=== PATIENT | female | born 1950 | race Caucasian/White ===

== ENCOUNTER 2016-06-26 03:52 | Emergency (ER) | payer OTHER ==
[~2016-06-26] VITALS: Ht 157.5 cm; Wt 84.0 kg
[~2016-06-26 03:52] MED LIST: [UNRECOGNIZED DRUG - REMARK] PO; [UNRECOGNIZED DRUG - REMARK] PO
[2016-06-26 03:57] VITALS: Ht 157.5 cm; Wt 84.0 kg
[2016-06-26] MEDS ORDERED: PIPER-TAZO 3.375 GM IV (PMX) 100 ML IVPB STA (07:26)
[2016-06-26] MEDS ORDERED: VANCOMYCIN 1 GM (PMX) 250 ML IVPB STA (07:26)
[2016-06-26] MEDS ORDERED: SODIUM CHLORIDE 0.9% 1L BAG IV* STA (07:26)
[2016-06-26] MEDS ORDERED: IBUPROFEN 800 MG TAB PO ONE (07:30)
--- NOTE | 2016-06-26 07:54 | ERA ---
ER Documentation Chief Complaint Date/Time DATE: 06/26/16 TIME: 07:52 Chief Complaint sp removal of R breast tumor 20 days ago, fever today w/ pain HPI 65-year-old female presents with family. The patient had a right breast tumor resection approximately 20 days ago. The patient presents with approximately 48 hours of symptoms that include right breast tenderness, drainage, erythema and warmth. Generalized fatigue. The patient surgery was at [facility]. She denies any other symptoms including no cough, no rhinorrhea, no abdominal pain, no dysuria urgency or frequency. ROS All systems reviewed and are negative except as per history of present illness. Medications Home Meds Reported Medications [Dodge, Unk Dose] No Conflict Check, PO PRN 01/04/13 [Lopressor, Unk Dose] No Conflict Check, PO BID 01/04/13 Allergies Allergies: Coded Allergies: acetaminophen (Verified Allergy, Intermediate, 06/26/16) hydrocodone (Verified Allergy, Intermediate, 06/26/16) PMhx/Soc History of Surgery: No (Breast CA) Anesthesia Reaction: No Hx Neurological Disorder: No Hx Respiratory Disorders: No Hx Cardiac Disorders: Yes (HTN) Hx Psychiatric Problems: No Hx Miscellaneous Medical Probl: Yes (HTN, LBP, DM) Hx Alcohol Use: No Hx Substance Use: No Hx Tobacco Use: No Smoking Status: Never smoker FmHx Family History: No diabetes Physical Exam Vitals Vital Signs Date Time Temp Pulse Resp B/P Pulse Ox O2 Delivery O2 Flow Rate FiO2 06/26/16 07:22 102.9 83 20 139/78 96 Room Air 06/26/16 03:57 102.9 114 20 139/78 96 Physical Exam General: Well developed, well nourished, no acute distress Head: Normocephalic, atraumatic. Eyes: Pupils equally reactive, EOM intact ENT: Moist mucous membranes Neck: Supple, no lymphadenopathy Respiratory: Lungs clear bilaterally, no distress Cardiovascular: RRR, no murmurs, rubs, or gallops Abdominal: Soft, non-tender, non-distended, no peritoneal signs : Deferred MSK: No edema, no unilateral swelling, 5/5 strength Neurologic: Alert and oriented, moving all extremities, normal speech, no focal weakness, no cerebellar signs Skin: Electro Tech breast exam shows a right breast that is swollen, erythema warmth and tenderness along the right superior incision site was scant purulent drainage mild fluctuance and induration noted to the 12 o'clock position of the breast Psych: Normal mood Result Diagram: 06/26/16 0741 06/26/16 0741 Results 24 hrs Laboratory Tests Test 06/26/16 07:41 06/26/16 09:17 Activated Partial Thromboplast Time 28.9Sec Alanine Aminotransferase (ALT/SGPT) 18IU/L Albumin 4.4g/dl Albumin/Globulin Ratio 1.69 Alkaline Phosphatase 82IU/L Anion Gap 23 Aspartate Amino Transf (AST/SGOT) 14IU/L Basophils # 0.010^3/ul Basophils % 0.2% Blood Urea Nitrogen 26mg/dl Calcium Level 9.3mg/dl Carbon Dioxide Level 24mmol/L Chloride Level 100mmol/L Creatinine 0.73mg/dl Direct Bilirubin 0.00mg/dl Eosinophils # 0.110^3/ul Eosinophils % 0.8% Globulin 2.60g/dl Glucose Level 116mg/dl Hematocrit 42.6% Hemoglobin 14.1g/dl INR International Normalized Ratio 1.05 Indirect Bilirubin 0.3mg/dl Lactic Acid Level 2.0mmol/L 2.0mmol/L Lymphocytes # 1.110^3/ul Lymphocytes % 8.0% Mean Corpuscular Hemoglobin 30.3pg Mean Corpuscular Hemoglobin Concent 33.1g/dl Mean Corpuscular Volume 91.6fl Mean Platelet Volume 10.7fl Monocytes # 1.010^3/ul Monocytes % 7.2% Neutrophils # 10.610^3/ul Neutrophils % 79.7% Nucleated Red Blood Cells # 0.010^3/ul Nucleated Red Blood Cells % 0.0/100WBC Platelet Count 11671^3/UL Potassium Level 4.4mmol/L Prothrombin Time 13.7Sec Prothrombin Time Ratio 1.1 Red Blood Count 4.6510^6/ul Red Cell Distribution Width 12.2% Sodium Level 143mmol/L Total Bilirubin 0.3mg/dl Total Protein 7.0g/dl White Blood Count 13.310^3/ul Current Medications Medications (Trade) Dose Ordered Sig/Omega Route PRN Reason Start Time Stop Time Status Last Admin Dose Admin Sodium Chloride 2600 ml 2,600 ml BOLUS OVER 2 HOURS STAT IV* 06/26/16 07:26 06/26/16 07:29 DC 06/26/16 07:59 Vancomycin HCl 250 ml @ 125 mls/hr ONCE STAT IVPB 06/26/16 07:26 06/26/16 09:25 DC 06/26/16 09:33 Piperacillin Sod/ Tazobactam Sod (Zosyn 3.375gm/ 100 ml (Pmx)) 100 ml @ 100 mls/hr ONCE STAT IVPB 06/26/16 07:26 06/26/16 08:25 DC 06/26/16 07:59 Ibuprofen (Motrin) 800 mg ONCE ONCE PO 06/26/16 07:30 06/26/16 07:31 DC 06/26/16 07:59 Procedures/MDM EKG, MONITORS, & DIAGNOSTIC IMAGING: Breast ultrasound IMPRESSION: 1. Large fluid collection in the right breast 9 o'clock to 12 o'clock position measuring 9.8 x 6.0 cm consistent with seroma or hematoma. Clinical correlation advised. 2. Any further management regarding the fluid collection should be based upon clinical grounds. RPTAT: QQ EKG: I reviewed and interpreted a 12-lead EKG. Rhythm: Normal sinus rhythm Ectopy: None Intervals: No abnormalities ST segments: No elevations or depressions T waves: No contiguous inversions Chest x-ray: I reviewed and interpreted a 1 view of the chest Mediastinum: No enlargement Cardiac silhouette: No cardiomegaly Airspace: Clear lung mac bilaterally without evidence of pneumothorax Bones: No evidence of fracture LAB INTERPRETATION: Leukocytosis, normal lactic acid MEDICAL DECISION MAKING: The patient presents with signs and symptoms concerning for postoperative infection of a right breast incision site. Concerning for possible breast abscess. The patient does meet SIRS criteria and for this reason has a focal source. The patient will need sepsis screening including laboratory testing, fluid resuscitation, antipyretics and antibiotics. Low threshold for inpatient hospitalization given postoperative infection. I will attempt to reach out to the patient's surgeon at [facility]. ER COURSE: The patient's symptoms are improving with antipyretics, fluids. The patient was given vancomycin and Zosyn. Ultrasound imaging shows evidence of seroma or hematoma. Consider abscess as well. I spoke to the patient's surgeon Dr. Nye, he would prefer the patient to be transferred to [facility] so he can follow-up with the patient. He will be the accepting provider. Documents have been sent. I kept the patient and/or family informed of laboratory and diagnostic imaging results throughout the emergency room course. DISPOSITION PLAN: Pending transfer to [facility] for continuity of care patient is stable for transfer. CONSULTATION: Accepting care team and consultations: I discussed the current laboratory data, diagnostic imaging and emergency care provided. Admitting team: Dr. Nye Admitting team indication: Insurance directed Departure Diagnosis: Primary Impression: Sepsis Qualified Code: A41.9 - Sepsis, due to unspecified organism Additional Impression: Infection of right breast Condition: Stable ANGIE KANG MD Jun 26, 2016 07:54
[2016-06-26 08:03] LABS: ADD SCAN DIFF NO
[2016-06-26 08:09] LABS: BASOPHILS % 0.2 % (0.0-2.0); EOSINOPHILS # 0.1 10^3/ul (0.0-0.5); EOSINOPHILS % 0.8 % (0.0-7.0); HEMATOCRIT 42.6 % (37.0-47.0); HEMOGLOBIN 14.1 g/dl (12.0-16.0); LYMPHOCYTES # 1.1 10^3/ul (0.8-2.9); MEAN CORPUSCULAR HEMOGLOBIN 30.3 pg (29.0-33.0); MEAN CORPUSCULAR HGB CONC 33.1 g/dl (32.0-37.0); MEAN CORPUSCULAR VOLUME 91.6 fl (82.0-101.0); MEAN PLATELET VOLUME 10.7 fl (7.4-10.4); MONOCYTES % 7.2 % (0.0-11.0); NEUTROPHIL # 10.6 10^3/ul (1.6-7.5); NEUTROPHILS % 79.7 % (39.0-77.0); PLATELET COUNT 196 10^3/UL (140-415); RED BLOOD COUNT 4.65 10^6/ul (4.20-5.40); RED CELL DISTRIBUTION WIDTH 12.2 % (11.5-14.5); WHITE BLOOD COUNT 13.3 10^3/ul (4.8-10.8)
[2016-06-26 08:15] LABS: ALBUMIN 4.4 g/dl (3.3-4.9); POTASSIUM 4.4 mmol/L (3.5-5.1)
[2016-06-26 08:17] LABS: CREATININE 0.73 mg/dl (0.44-1.00)
[2016-06-26 08:18] LABS: ALBUMIN/GLOBULIN RATIO 1.69; BILIRUBIN,INDIRECT 0.3 mg/dl (0-1.1); BILIRUBIN,TOTAL 0.3 mg/dl (0.2-1.3); CALCIUM 9.3 mg/dl (8.4-10.2)
[2016-06-26 08:40] LABS: INR 1.05; PROTIME 13.7 Sec (12.2-14.2); PT RATIO 1.1
[2016-06-26 08:41] LABS: PARTIAL THROMBOPLASTIN TIME 28.9 Sec (25.0-35.0)
--- NOTE | 2016-06-26 09:29 | RADRPT ---
PROCEDURE: Right breast ultrasound. CLINICAL INDICATION: History of right breast lumpectomy 2 weeks ago. Right wrist pain and swellin g. TECHNIQUE: High-resolution sonography of the right breast was performed in the axial and sagittal planes. COMPARISON: No prior study is available for comparison. FINDINGS: There is a large fluid collection at the lumpectomy site in the right breast 9 o'clock to 12 o'clock position. The fluid collection measures approximately 9.8 x 6.0 cm, has internal echoes and septat ions. The breast parenchyma is otherwise normal. IMPRESSION: 1. Large fluid collection in the right breast 9 o'clock to 12 o'clock position measuring 9.8 x 6.0 cm consistent with seroma or hematoma. Clinical correlation advised. 2. Any further management regarding the fluid collection should be based upon clinical grounds. RPTAT: QQ .Sawyer Brower MD, MD Date Time Electronically viewed and signed by .Sawyer Brower MD, on 06/26/2016 09:29 .R/
[2016-06-26 11:30] VITALS: BP 106/63; PULSE 95; RESP 20; TEMP 98.9
[2016-06-26] MEDS ORDERED: TRAM50TA2 PO (13:14)
[2016-06-26] MEDS ORDERED: CEPH-443 PO (13:14)
[2016-06-26] MEDS ORDERED: BACTDS PO (13:14)
[2016-06-26] MEDS ORDERED: IBUP800T25 PO (13:14)
== END 2016-06-26 15:34 | disposition home or self-care (01) ==
LOC: E/R 03:52
DX: A41.9 Sepsis, unspecified organism (principal); T81.4XXA Infection following a procedure, initial encounter; I10 Essential (primary) hypertension; E11.9 Type 2 diabetes mellitus without complications; Y82.8 Other medical devices associated with adverse incidents; Z85.3 Personal history of malignant neoplasm of breast
CPT/HCPCS: 36415; 76641; 80053; 83605; 85025; 85610; 85730; 87040; 96374; 96375; J2543; J3370; J7030; Z7502; Z7610

== ENCOUNTER → 2017-08-05 | Outpatient (CLI) | END | disposition home or self-care (01) ==